=== PATIENT | female | born 1960 | race Caucasian/White ===

== ENCOUNTER 2021-10-23 09:37 | Emergency (ER) | payer BC ==
[~2021-10-23] VITALS: Ht 165.1 cm; Wt 98.0 kg
[2021-10-23] MEDS ORDERED: METRONIDAZOLE500 MG PO (12:45)
[2021-10-23] MEDS ORDERED: CIPRO500 MG PO (12:45)
[2021-10-23] MEDS ORDERED: PERCOCET 5-3251 EACH PO (12:46)
== END 2021-10-23 13:00 | disposition home or self-care (01) ==
LOC: ED 09:37
DX: K57.32 Diverticulitis of large intestine without perforation or abscess without bleeding (principal); Z85.89 Personal history of malignant neoplasm of other organs and systems; I25.10 Atherosclerotic heart disease of native coronary artery without angina pectoris
CPT/HCPCS: 36415; 74177; 80053; 85025; 99284-25; Q9967

== ENCOUNTER 2023-04-29 15:18 | Emergency (ER) | payer BC ==
[~2023-04-29] VITALS: Ht 165.1 cm; Wt 98.0 kg
[~2023-04-29 15:18] MED LIST: CIPRO500 MG PO; METRONIDAZOLE500 MG PO; PERCOCET 5-3251 EACH PO
[2023-04-29] MEDS ORDERED: MOUNJARO5 MG/0.5 M (16:34)
[2023-04-29] MEDS ORDERED: POTASSIUM CHLO10 ME2 PO (16:35)
[2023-04-29] MEDS ORDERED: ALLOPURINOL100 MG PO (16:35)
[2023-04-29] MEDS ORDERED: BISOPROLOL-HCT1 EACH PO (16:35)
[2023-04-29] MEDS ORDERED: LISINOPRIL20 MG PO (16:35)
[2023-04-29] MEDS ORDERED: JARDIANCE25 MG PO (16:35)
[2023-04-29] MEDS ORDERED: ATORVASTATIN CA40 MG PO (16:35)
[2023-04-29 18:26] LABS: BILIRUBIN, URINE NEGATIVE (negative); BLOOD/HGB, URINE LARGE (Negative); KETONE, URINE TRACE (Negative); LEUK ESTERASE, URINE TRACE (negative); NITRITE, URINE NEGATIVE (negative)
[2023-04-29 18:33] LABS: BACTERIA, URINE NONE SEEN /hpf (negative); CASTS, URINE NONE SEEN \\lpf; CRYSTALS, URINE NONE SEEN (0-1+); EPITHELIAL CELLS, URINE SQUAMOUS 3+ /lpf (0-1+); RED BLOOD CELLS, URINE 41-50 /hpf (0-5)
[2023-04-29 18:34] LABS: COLLECTION TYPE, URINE CLEAN CATCH; REFLEX CULTURE, URINE No (No)
[2023-04-29] MEDS ORDERED: CEFDINIR300 MG PO (19:05)
[2023-04-29 19:25] VITALS: BP 123/70
== END 2023-04-29 19:25 | disposition home or self-care (01) ==
LOC: ED 15:18
PROVIDERS: Emergency Medicine
DX: N30.91 Cystitis, unspecified with hematuria (principal); I25.10 Atherosclerotic heart disease of native coronary artery without angina pectoris; Z79.899 Other long term (current) drug therapy
CPT/HCPCS: 81001; 84703; 87088; 99283